=== PATIENT | male | born 1965 | race Caucasian/White ===

== ENCOUNTER 2018-02-19 21:52 | Observation (INO) | payer OTHER ==
--- NOTE | 2018-02-19 21:57 | PDOC ---
History of Present Illness - General Chief Complaint: Head/Neck problem Stated Complaint: R ARM/LEG TINGLING Time Seen by Provider: 02/19/18 21:53 History Source: Patient Exam Limitations: No Limitations - History of Present Illness Initial Comments: 02/19/18 22:12 This is a 52-year-old male who comes in with his for evaluation of multiple complaints. Patient is complaining primarily of some paresthesias numbness and tingling of his whole right side of his body. Patient said it has now spread to the left lower extremity as well. Patient also is complaining of some chest tightness associated with shortness of breath and nausea but no diaphoresis. Patient was recently started on cholesterol lowering medication however does not have a history of hypertension and no family history of coronary artery disease. Patient does appear to be somewhat anxious. Patient denies history of similar symptoms in the past. Patient has had the symptoms now for 3 days. PAST MEDICAL HISTORY: no significant history PAST SURGICAL HISTORY: no significant history FAMILY HISTORY: no pertinant history SOCIAL HISTORY: Pt lives with family and is employed. MEDICATIONS: reviewed ALLERGIES: As per nursing notes Review of Systems General: No fevers or chills, no weakness, no weight loss HEENT: No change in vision. No sore throat,. No ear pain CardioVascular: + chest pain + shortness of breath Respiratory:No cough, or wheezing. Gastrointestinal: + nausea,no vomitting, diarrhea or constipation, No rectal bleeding Genitourinary: No dysuria, hematuria, or frequency Musculoskeletal: No joint or muscle pain or swelling Neurologic: No headache, vertigo, dizziness or loss of consciousness Psychiatric: nor depression Skin: No rashes or easy bruising Endocrine: no increased thirst or abnormal weight change Allergic: no skin or latex allergy All other systems reviewed and normal Exam: General: Well-nourished well-developed individual, no acute distress HEENT: Throat: Normal, tonsils normal, no erythema or exudate Neck: Supple, no meningeal signs, no lymphadenopathy Eyes::Pupils equal reactive and round, extraocular motion intact Chest: Nontender to palpation Cardiac: S1-S2 normal, regular rate and rhythm, no murmurs rubs or gallops Respiratory: Lungs clear to auscultation bilateral Abdomen: Soft, nondistended, normal bowel sounds, nontender to palpation diffusely Extremities: Warm, dry, no cyanosis, clubbing, or edema Skin: No rashes Neuro: Alert and oriented x3, CN II - XII intact, nonfocal exam with normal strength, normal sensation, normal reflexes, normal gait, Psych: Normal mood and affect Medical decision making this is a 52-year-old male who comes in with 3 days of what he describes as right-sided paresthesias. However on external exam is normal exam is normal patient also was complaining of some chest pain with shortness of breath and nausea. We'll obtain a workup including CBC, comp, cardiac enzymes, chest x-ray, EKG, head CT. Patient will need to be admitted for additional evaluation and to rule out CVA and ACS. 02/19/18 23:29 Patient just informed me that he is not willing to be admitted and wants to advice. Patient is aware that by leaving AGAINST MEDICAL ADVICE that he except responsibility for anything that may happen including a heart attack stroke permanent disability or . Patient signed out AGAINST MEDICAL ADVICE. Patient does have a vascular surgeon E will see in the morning as well as his primary care doctor. 02/19/18 23:48 Past History - Past Medical History Allergies/Adverse Reactions: Allergies Allergy/AdvReac Type Severity Reaction Status Date / Time No Known Allergies Allergy Unverified 02/19/18 21:57 Home Medications: Ambulatory Orders Ezetimibe 5 mg PO DAILY 02/19/18 Heart Score/ECG Review - History History: Slightly suspicious - Electrocardiogram EKG: Non specific repolarization disturbance - Age Age: 45-65 - Risk Factors Risk Factors Heart Score: Yes Hx Hypercholesterolemia Based on the list above the patient has:: 1-2 risk factors - Troponin Troponin: </= normal limit - Score Heart Score - Total: 3 ED Treatment Course - LABORATORY CBC & Chemistry Diagram: 02/19/18 22:30 02/19/18 22:30 *DC/Admit/Observation/Transfer Diagnosis at time of Disposition: Chest pain, Numbness on right side - Discharge Dispostion Disposition: AGAINST MEDICAL ADVICE Condition at time of disposition: Good Decision to Admit order: Yes - Referrals - Patient Instructions Additional Instructions: It is our recommendation that you be admitted to the hospital however you have chosen to leave AGAINST MEDICAL ADVICE by leaving it may medical advice accepting responsibility for anything that may happen to you including, but not limited to heart attack stroke, permanent disability or . If any time you change your mind and want to be admitted please return to the emergency department Return to the emergency department immediately with ANY new, persistent or worsening symptoms. Continue any medications as previously prescribed by your physician. You should follow up with your primary doctor as soon as possible regarding today's emergency department visit. . Please make sure your doctor reviews the results of your emergency evaluation. Thank you for coming to the Emergency Department today for your care. It was a pleasure to see you today. Please note that your evaluation is INCOMPLETE until you follow-up with your doctor. - Post Discharge Activity
[2018-02-19 22:02] VITALS: BP 112/66; PULSE 67; TEMP 98; BMI 31.0
[2018-02-19 22:40] LABS: BASO % 2.4 % (0-2.0); EOS % 1.9 % (0-4.5); HEMATOCRIT 44.3 % (35.4-49); HEMOGLOBIN 14.4 GM/dl (11.7-16.9); LYMPH % 36.8 % (8-40); MCH 26.5 pg (25.7-33.7); MCHC 32.5 g/dl (32.0-35.9); MEAN CELL VOLUME 81.4 fl (80-96); MEAN PLT VOLUME 9.3 fl (7.5-11.1); MONO % 12.3 % (3.8-10.2); NEUT % 46.6 % (42.8-82.8); PLATELET COUNT 182 K/MM3 (134-434); RBC 5.45 M/mm3 (4.00-5.60); RDW 14.3 % (11.9-15.9); WHITE BLOOD COUNT 7.3 K/mm3 (4.0-10.8)
[2018-02-19 22:52] LABS: PH,URINE 5.5 (4.5-8); URINE APPEARANCE Clear; URINE BILIRUBIN Negative (NEGATIVE); URINE BLOOD Negative (NEGATIVE); URINE GLUCOSE (UA) Negative (NEGATIVE); URINE KETONE Negative (NEGATIVE); URINE LEUK ESTERASE Negative (NEGATIVE); URINE NITRITE Negative (NEGATIVE); URINE PROTEIN Negative (NEGATIVE)
[2018-02-19 22:53] LABS: URINE COLOR YELLOW
[2018-02-19 22:59] LABS: ALBUMIN 4.1 g/dl (3.5-5.0); ALK PHOS 89 U/L (32-92); ANION GAP 3 (8-16); BLOOD UREA NITROGEN 15 mg/dl (7-18); CALCIUM 8.9 mg/dl (8.4-10.2); CHLORIDE 108 mmol/L (98-107); CO2 28 mmol/L (22-28); CREATININE 0.8 mg/dl (0.6-1.3); GLUCOSE,RANDOM 107 mg/dl (74-106); POTASSIUM 3.9 mmol/L (3.5-5.1); SGOT/AST 26 U/L (10-42); SGPT/ALT 29 U/L (10-40); SODIUM 139 mmol/L (136-145); TOT PROT 7.2 g/dl (6.4-8.3)
[2018-02-19 23:02] LABS: BILIRUBIN,TOTAL < 0.5 mg/dl (0.2-1.0)
--- NOTE | 2018-02-20 11:31 | EKG ---
Test Reason : Blood Pressure : / mmHG Vent. Rate : 064 BPM Atrial Rate : 064 BPM P-R Int : 172 ms QRS Dur : 074 ms QT Int : 390 ms P-R-T Axes : 074 -20 026 degrees QTc Int : 402 ms NORMAL SINUS RHYTHM POSSIBLE LEFT ATRIAL ENLARGEMENT BORDERLINE ECG NO PREVIOUS ECGS AVAILABLE Confirmed by JALIL HURD, BELLA ([id number]) on 02/20/2018 11:30:52 AM Referred By: MD VALLEJO Confirmed By:BELLA JIMENES MD
== END 2018-02-20 00:03 | disposition left against medical advice (07) ==
LOC: FER 21:52 → FM/S 23:33 → FER 02-20 00:03
PROVIDERS: ADMIT Internal Medicine; ATTEND Internal Medicine
DX: R07.9 Chest pain, unspecified (principal); R20.0 Anesthesia of skin; E78.00 Pure hypercholesterolemia, unspecified
CPT/HCPCS: 36415; 70450-TC; 71045-TC-FY; 80053; 81003; 82550; 82553; 84484; 85025; 93005; 99283-25; G0378

== ENCOUNTER 2021-08-30 11:52 | Observation (INO) | payer OTHER ==
[2021-08-30 12:44] VITALS: BMI 27.3
[2021-08-30 14:08] LABS: BASO % 0.5 % (0-2.0); EOS % 1.2 % (0-4.5); HEMATOCRIT 44.3 % (35.4-49); HEMOGLOBIN 14.4 GM/dL (11.7-16.9); LYMPH % 36.1 % (8-40); MCH 26.5 pg (25.7-33.7); MCHC 32.6 g/dl (32.0-35.9); MEAN CELL VOLUME 81.5 fl (80-96); MEAN PLT VOLUME 9.4 fl (7.5-11.1); MONO % 10.8 % (3.8-10.2); NEUT % 51.4 % (42.8-82.8); PLATELET COUNT 171 10^3/uL (134-434); RBC 5.44 M/mm3 (4.00-5.60); RDW 14.8 % (11.9-15.9); WHITE BLOOD COUNT 7.6 K/mm3 (4.0-10.0)
[2021-08-30 14:15] LABS: INR 1.11 (0.83-1.09); PROTHROMBIN TIME (PATIENT) 12.4 SEC (9.7-13.0)
[2021-08-30 14:30] LABS: BLOOD UREA NITROGEN 12.3 mg/dL (7-18); CALCIUM 9.2 mg/dL (8.5-10.1)
[2021-08-30 14:31] LABS: ALBUMIN 3.8 g/dl (3.4-5.0); MAGNESIUM 2.1 mg/dL (1.8-2.4)
[2021-08-30 14:33] LABS: CHOLESTEROL 206 mg/dL (50-200); TRIGLYCERIDES 92 mg/dL (0-150)
[2021-08-30 14:34] LABS: CREATININE 0.9 mg/dL (0.55-1.3); LDL CHOLESTEROL (ONLY SJRH) 131 mg/dL (5-100)
[2021-08-30 14:35] LABS: BILIRUBIN,TOTAL 0.4 mg/dL (0.2-1); TOT PROT 7.6 g/dl (6.4-8.2)
[2021-08-30 14:36] LABS: HDL CHOLESTEROL 50 mg/dL (40-60)
[2021-08-30] MEDS ORDERED: ATORVASTATIN CA 40 MG TABLET (FP) PO SCH (22:00)
[2021-08-30] MEDS ORDERED: ATORVASTATIN CA 40 MG TABLET (FP) ONE (22:41)
[2021-08-31 07:21] VITALS: BP 104/64; PULSE 75; TEMP 98
[2021-08-31 07:49] LABS: BASO % 0.5 % (0-2.0); EOS % 1.2 % (0-4.5); HEMATOCRIT 43.1 % (35.4-49); HEMOGLOBIN 14.2 GM/dL (11.7-16.9); LYMPH % 26.5 % (8-40); MCH 26.3 pg (25.7-33.7); MCHC 32.8 g/dl (32.0-35.9); MEAN PLT VOLUME 9.8 fl (7.5-11.1); MONO % 13.4 % (3.8-10.2); NEUT % 58.4 % (42.8-82.8); PLATELET COUNT 165 10^3/uL (134-434); RBC 5.38 M/mm3 (4.00-5.60); RDW 14.8 % (11.9-15.9)
[2021-08-31 08:12] LABS: ALBUMIN 3.7 g/dl (3.4-5.0); BLOOD UREA NITROGEN 16.7 mg/dL (7-18); MAGNESIUM 2.1 mg/dL (1.8-2.4)
[2021-08-31 08:15] LABS: PHOSPHOROUS 4.6 mg/dL (2.5-4.9)
[2021-08-31 08:16] LABS: CREATININE 0.8 mg/dL (0.55-1.3); TOT PROT 7.1 g/dl (6.4-8.2)
[2021-08-31 08:17] LABS: BILIRUBIN,TOTAL 0.4 mg/dL (0.2-1)
[2021-08-31] MEDS ORDERED: ENOXAPARIN NA (PORCINE) 40 MG/0.4 ML DISP.SYRIN SQ ONE (09:40)
[2021-08-31] MEDS ORDERED: ENOXAPARIN NA (PORCINE) 40 MG/0.4 ML DISP.SYRIN SQ SCH (10:00)
== END 2021-08-31 13:13 | disposition left against medical advice (07) ==
LOC: JER 11:52 → JERBED 13:44
PROVIDERS: ADMIT Internal Medicine; ATTEND Internal Medicine
PROC: 3E023GC Introduction of Other Therapeutic Substance into Muscle, Percutaneous Approach (ICD-10-PCS; principal; 2021-08-30)
DX: R20.2 Paresthesia of skin (principal); R51.9 Headache, unspecified; R73.03 Prediabetes; E78.5 Hyperlipidemia, unspecified; Z29.9 Encounter for prophylactic measures, unspecified
CPT/HCPCS: 36415; 70450-TC; 70551-TC; 71045-TC-FY; 72125-TC; 80053; 80061; 82607; 83036; 83735; 84100; 84484; 85025; 85610; 85730; 93005; 93010; 93880-TC; 96372; 99285-25; C9803; G0378; U0003; U0005

== ENCOUNTER 2022-03-14 15:58 | Emergency (ER) | payer OTHER ==
[2022-03-14 16:52] VITALS: BP 122/82; PULSE 91; TEMP 99.5; BMI 31.3
== END 2022-03-14 17:35 | disposition home or self-care (01) ==
LOC: FER 15:58
DX: S09.90XA Unspecified injury of head, initial encounter (principal); W20.8XXA Other cause of strike by thrown, projected or falling object, initial encounter
CPT/HCPCS: 70450-TC; 99284-25

== ENCOUNTER 2022-08-02 18:25 | Emergency (ER) | payer OTHER ==
[2022-08-02 18:43] VITALS: BP 115/72; PULSE 76; RESP 20; TEMP 99.1; BMI 31.3
[2022-08-02] MEDS ORDERED: KETOROLAC TROMETHAMINE 30 MG/1 ML VIAL IVPUSH ONE (19:48)
[2022-08-02] MEDS ORDERED: SODIUM CHLORIDE 500 ML IV STA (19:48)
[2022-08-02] MEDS ORDERED: KETOROLAC TROMETHAMINE 30 MG/1 ML VIAL ONE (19:52)
[2022-08-02 20:26] LABS: HEMATOCRIT 43.8 % (35.4-49); HEMOGLOBIN 14.4 G/dL (11.7-16.9); MCH 26.3 pg (25.7-33.7); MCHC 32.8 g/dl (32.0-35.9); MEAN CELL VOLUME 80.1 fl (80-96); MEAN PLT VOLUME 9.3 fl (7.5-11.1); PLATELET COUNT 161.1 10^3/uL (134-434); RBC 5.47 10^6/uL (4.00-5.60); RDW 15.6 % (11.9-15.9); WHITE BLOOD COUNT 8.4 10^3/uL (4.0-10.8)
[2022-08-02 21:44] LABS: ALBUMIN 3.6 g/dl (3.4-5.0); BILIRUBIN,TOTAL 0.6 mg/dl (0.2-1); CALCIUM 8.6 mg/dl (8.5-10); CREATININE 0.8 mg/dl (0.55-1.3); TOT PROT 6.6 g/dl (6.4-8.2)
== END 2022-08-02 23:04 | disposition home or self-care (01) ==
LOC: FER 18:25
PROC: 3E033GC Introduction of Other Therapeutic Substance into Peripheral Vein, Percutaneous Approach (ICD-10-PCS; principal; 2022-08-02)
DX: M62.838 Other muscle spasm (principal); E86.0 Dehydration
CPT/HCPCS: 36415; 80053; 85025; 99284-25